=== PATIENT | female | born 1960 | race African-American/Black ===

== ENCOUNTER 2016-11-24 07:08 | Inpatient (IN) | payer OTHER ==
[~2016-11-24] VITALS: Ht 160 cm; Wt 78.5 kg
[~2016-11-24 07:08] MED LIST: HYDR-4452 PO; PANT40EC PO; [UNRECOGNIZED DRUG - CODE] PO
--- NOTE | 2016-11-24 07:20 | NUR ---
PT TAKEN TO BED 5
--- NOTE | 2016-11-24 07:23 | NUR ---
56F BIB FAMILY C/O IMPALED OBJECT TO RT FOOT BELOW 5TH DIGIT; PT STATES STEPPED ON CHAINED FENCE AT 0600 TODAY, AND OBJECT BECAME STUCK IN FOOT; PT C/O SHARP PAIN, NON-RADIATING, 10/10 AT THIS TIME; RT PEDAL PULSE PALPABLE, RT CAP REFILL < 2 SECONDS, NO LOSS OF SENSATION TO RT FOOT AT THIS TIME; NO ACTIVE BLEEDING NOTED TO SITE AT THIS TIME; PT AA&OX4, PERRLA, BL LUNG SOUNDS CLEAR, RR EVEN/UNLABORED, SKIN IS WARM/DRY AT THIS TIME; PT STATES NO N/V/D AT THIS TIME; PT RESTING IN BED WITH HOB ELEVATED AND IN LOWEST POSITION; POSITIONED FOR COMFORT; ER MD MADE AWARE OF STATUS; WILL CONTINUE TO MONITOR.
[2016-11-24 07:24] VITALS: BP 150/82
--- NOTE | 2016-11-24 07:26 | NUR ---
ER MD DR. ARROYO EVALUATING PT AT BEDSIDE.
[2016-11-24] MEDS ORDERED: BUPIVACAINE-MPF 0.5% 10 ML VIAL INJ ONE (07:39)
--- NOTE | 2016-11-24 07:56 | NUR ---
XRAY AT BEDSIDE.
--- NOTE | 2016-11-24 08:05 | NUR ---
BUPIVACAINE ADMINISTERED BY FRANTZ ARROYO AT BEDSIDE.
[2016-11-24] MEDS ORDERED: PIPERACILLIN/TAZOBACTAM 4.5 GM in DEXTROSE 5% 100 ML IV ONE (08:20)
[2016-11-24] MEDS ORDERED: VANCOMYCIN 1,000 MG in DEXTROSE 5% 250 ML IV ONE (08:20)
--- NOTE | 2016-11-24 08:20 | NUR ---
NADR FROM BUPIVACAINE ADMINISTERED BY ER MD DR. ARROYO AT THIS TIME; RR EVEN/UNLABORED; PT POSITIONED FOR COMFORT; WILL CONTINUE TO MONITOR.
[2016-11-24] MEDS ORDERED: HYDROmorphone 1 MG/ML AMP IVP ONE (08:25)
[2016-11-24] MEDS ORDERED: PIPERACILLIN/TAZOBACTAM 2.25 GM VIAL IV ONE (08:33)
[2016-11-24] MEDS ORDERED: VANCOMYCIN 1,000 MG VIAL ONE ×2 (08:34→23:13)
[2016-11-24] MEDS: DEXT 5% /NACL 0.9% 1,000 ML IV SCH ×3 (08:35→23:27)
[2016-11-24] MEDS ORDERED: LORazepam 2 MG/ML VIAL IVP PRN (08:35)
[2016-11-24] MEDS ORDERED: ACETAMINOPHEN 325 MG TAB PO PRN (08:35)
[2016-11-24] MEDS ORDERED: ONDANSETRON 4 MG/2 ML VIAL IVP PRN ×2 (08:35→10:00)
[2016-11-24 08:43] LABS: BASOPHILS # (AUTO) 0.2 K/uL (0.00-0.22); BASOPHILS % (AUTO) 1.5 % (0.0-2.0); EOSINOPHILS # (AUTO) 0.3 K/uL (0-0.4); EOSINOPHILS % (AUTO) 2.3 % (0.0-4.0); HEMOGLOBIN 12.9 g/dL (12.0-16.0); LYMPHOCYTES # (AUTO) 1.4 K/uL (2.5-16.5); LYMPHOCYTES % (AUTO) 12.7 % (20.5-51.1); MEAN CORPUSCULAR HEMOGLOBIN 28 pg (27-31); MEAN CORPUSCULAR HGB CONC 32 g/dL (33-37); MEAN CORPUSCULAR VOLUME 88 fL (80-94); MONOCYTES # (AUTO) 0.4 K/uL (0.8-1.0); MONOCYTES % (AUTO) 3.3 % (1.7-9.3); NEUTROPHILS # (AUTO) 8.8 K/uL (1.8-7.7); NEUTROPHILS % (AUTO) 80.2 % (42.2-75.2); PLATELET COUNT (AUTO) 370 K/uL (140-450); RED BLOOD CELL COUNT(AUTO) 4.53 MIL/uL (4.20-5.40); RED CELL DISTRIBUTION WIDTH 13.3 % (11.6-13.7); WHITE BLOOD COUNT (AUTO) 11.1 K/uL (4.8-10.8)
[2016-11-24] MEDS ORDERED: ceFAZolin 1,000 MG VIAL ONE (08:49)
--- NOTE | 2016-11-24 08:53 | NUR ---
REPORT GIVEN TO PRAVEENA KOLB AT THIS TIME.
[2016-11-24 08:57] LABS: PROTHROMBIN TIME 10.5 secs (10.8-13.4)
[2016-11-24] MEDS ORDERED: [UNRECOGNIZED DRUG - OTHER] PO SCH (09:00)
[2016-11-24 09:01] LABS: ALBUMIN 4.1 g/dL (3.4-5.0); ANION GAP 12.1 (8-16); CARBON DIOXIDE 28.9 mmol/L (21-32); TOTAL BILIRUBIN 0.4 mg/dL (0.0-1.0)
--- NOTE | 2016-11-24 09:10 | NUR ---
PT STATES " I FEEL BETTER. THE PAIN IS GOING DOWN"; STATES PAIN 5/10 AT THIS TIME; RR EVEN/UNLABORED; WILL CONTINUE TO MONITOR.
--- NOTE | 2016-11-24 09:12 | NUR ---
XRAY AT BEDSIDE FOR STAT XRAY BEFORE PT TAKEN TO SURGERY.
--- NOTE | 2016-11-24 09:15 | NUR ---
Patient will be admitted to care of DR. Aleksandra RAI. Admited to MED-SURG. Will go to room 106B AFTER SURGERY. Belongings list completed. Report to PRAVEENA KOLB FROM SURGERY.
--- NOTE | 2016-11-24 09:16 | NUR ---
PT TAKEN TO KATE VIA ALEC ACCOMAPANIED BY SURGERY RN AT THIS TIME.
[2016-11-24] MEDS ORDERED: ONDANSETRON 4 MG/2 ML VIAL ONE (09:18)
[2016-11-24] MEDS ORDERED: PROPOFOL 200 MG/20 ML VIAL IV ONE (09:18)
[2016-11-24] MEDS ORDERED: SEVOFLURANE 250 ML BTL INH ONE (09:18)
[2016-11-24] MEDS ORDERED: DEXAMETHASONE 4 MG/ML VIAL ONE (09:18)
[2016-11-24] MEDS ORDERED: BUPIVACAINE-MPF 0.5% 30 ML VIAL INJ ONE (09:30)
[2016-11-24] MEDS ORDERED: fentaNYL 0.05 MG/ML VIAL ONE (09:32)
[2016-11-24] MEDS ORDERED: KETOROLAC 30 MG/ML VIAL IVP PRN (10:00)
[2016-11-24 10:45] VITALS: BP 134/90
--- NOTE | 2016-11-24 10:45 | NUR ---
RECEIVED PT ON UNIT VIA RNEY, PT IS A/OX4, AMBULATORY, IV IS ON THE LEFT FOREARM, PATENT, INTACT, FLUSHING WELL, PT HAS DRESSING ON THE RIGHT FOOT, PATENT, INTACT, MINIMAL DRAINAGE, S/P FOREIGN OBJECT REMOVED ON 11/24/16, NO S/S OF RESPIRATORY DISTRESS OR DISCOMFORT NOTED, SAFETY/FALL PRECAUTIONS ARE IN PLACE, DISCUSSED PLAN OF CARE WITH PT, PT VERBALIZED UNDERSTANDING, CALL LIGHT IS WITHIN REACH, WILL CONTINUE TO MONITOR.
--- NOTE | 2016-11-24 12:30 | NUR ---
PT IS RESTING IN BED EATING LUNCH, PATIENT'S SISTER IS AT BEDSIDE.
[2016-11-24] MEDS: HYDROcodone/APAP 10/325 MG 1 TAB TAB PO PRN ×3 (12:52→23:21)
--- NOTE | 2016-11-24 14:00 | NUR ---
PATIENT IS TALKING ON HER CELL PHONE, FAMILY IS AT BEDSIDE, CALL LIGHT WITHIN REACH.
[2016-11-24 16:00] VITALS: BP 141/87
--- NOTE | 2016-11-24 16:00 | NUR ---
PATIENT IS SITTING IN BED TALKING ON HER CELL PHONE, FAMILY IS AT BEDSIDE, CALL LIGHT IS WITHIN REACH.
--- NOTE | 2016-11-24 18:09 | NUR ---
PATIENT COMPLAINING OF PAIN IN HER RIGHT FOOT WILL MEDICATE WITH PRN PAIN MEDICATION
--- NOTE | 2016-11-24 19:11 | NUR ---
ENDORSED PT TO LDR NURSE NURSE FOR CONTINUITY OF CARE, PT STABLE AT THIS TIME.
--- NOTE | 2016-11-24 19:36 | NUR ---
RECEIVED HANDOFF REPORT FROM AM RN. PATIENT A&OX4, IV PATENT AND INTACT. NO SIGNS AND SYMPTOMS OF ACUTE DISTRESS. CALL LIGHT WITHIN REACH AND SAFETY MEASURES ENSURED. PATIENT REPORTED 6/10 PAIN IN TOE. MEDICATED ORDERED. WILL CONTINUE TO MONITOR.
--- NOTE | 2016-11-24 20:00 | NUR ---
PATIENT REFUSED TYLENOL. PAGED LEONARDA REGARDING PAIN. WAITING FOR CALLBACK.
--- NOTE | 2016-11-24 21:15 | NUR ---
PER DR. CECELIA MELGOZA TO GIVE NEXT DOSE NORCO AT 2300. PT VERBALIZED UNDERSTANDING AND AGREEMENT. WILL CONTINUE TO MONITOR.
[2016-11-24] MEDS ORDERED: VANCOMYCIN PER PHARMACY MC PRN (22:25)
[2016-11-24] MEDS ORDERED: VANCOMYCIN 750 MG in DEXTROSE 5% 250 ML IV SCH (22:40)
--- NOTE | 2016-11-24 23:38 | NUR ---
PATIENT RESTING IN BED. PATIENT STATED 9/10 PAIN. MEDICATED ORDERED. NO SIGNS OR SYMPTOMS OF ACUTE DISTRESS. CALL LIGHT WITHIN REACH. WILL CONTINUE TO MONITOR.
[2016-11-25] VITALS: BP 135/73
--- NOTE | 2016-11-25 01:17 | NUR ---
PATIENT SLEEPING. ANTIBIOTICS ADMINISTERED. NO SIGNS OR SYMPTOMS OF ACUTE DISTRESS. CALL LIGHT WITHIN REACH. WILL CONTINUE TO MONITOR.
--- NOTE | 2016-11-25 02:58 | NUR ---
PATIENT SLEEPING. NO SIGNS OR SYMPTOMS OF ACUTE DISTRESS. CALL LIGHT WITHIN REACH. WILL CONTINUE TO MONITOR.
--- NOTE | 2016-11-25 05:19 | NUR ---
PATIENT AWAKE IN BED. TOTAL DRESSING CAME OFF DURING SLEEP. REINFORCED WITH NEW DRESSING. PATIENT DENIES PAIN. NO SIGNS AND SYMPTOMS OF ACUTE DISTRESS. CALL LIGHT WITHIN REACH. WILL CONTINUE TO MONITOR.
[2016-11-25 05:59] LABS: ANION GAP 13.1 (8-16); CARBON DIOXIDE 25.9 mmol/L (21-32); CREATININE 0.8 mg/dL (0.6-1.3)
[2016-11-25] MEDS: PANTOPRAZOLE 40 MG TABEC PO SCH (06:00)
[2016-11-25] MEDS: HYDROcodone/APAP 10/325 MG 1 TAB TAB PO PRN ×3 (06:07→20:08)
[2016-11-25 06:15] LABS: HEMOGLOBIN 11.4 g/dL (12.0-16.0); MEAN CORPUSCULAR HEMOGLOBIN 29 pg (27-31); MEAN CORPUSCULAR HGB CONC 33 g/dL (33-37); MEAN CORPUSCULAR VOLUME 88 fL (80-94); PLATELET COUNT (AUTO) 343 K/uL (140-450); RED BLOOD CELL COUNT(AUTO) 3.97 MIL/uL (4.20-5.40); RED CELL DISTRIBUTION WIDTH 12.8 % (11.6-13.7)
--- NOTE | 2016-11-25 07:16 | NUR ---
GAVE HANDOFF REPORT TO AM RN. PATIENT REMAINS STABLE
--- NOTE | 2016-11-25 07:20 | NUR ---
RECEIVED REPORT FROM PLEATER NURSE, PT IS A/OX4, AMBULATORY, IV IS ON THE LEFT FOREARM, PATENT, INTACT, FLUSHING WELL, PT HAS DRESSING ON THE RIGHT FOOT, PATENT, INTACT, MINIMAL DRAINAGE, S/P FOREIGN OBJECT REMOVED ON 11/24/16, NO S/S OF RESPIRATORY DISTRESS OR DISCOMFORT NOTED, SAFETY/FALL PRECAUTIONS ARE IN PLACE, DISCUSSED PLAN OF CARE WITH PT, PT VERBALIZED UNDERSTANDING, CALL LIGHT IS WITHIN REACH, WILL CONTINUE TO MONITOR.
[2016-11-25 07:27] LABS: LYMPHOCYTES % (MANUAL) 12 % (20-46); MONOCYTES % (MANUAL) 5 % (5-12)
[2016-11-25 08:00] VITALS: BP 134/83
--- NOTE | 2016-11-25 09:25 | NUR ---
PT IS RESTING IN BED WATCHING TV, PATIENT'S SISTER IS AT BEDSIDE.
--- NOTE | 2016-11-25 09:27 | NUR ---
PATIENT HAS BEEN SCREENED AND CATEGORIZED HIGH NUTRITION RISK. PATIENT WILL BE SEEN WITHIN 1-2 DAYS OF ADMISSION. 11/24/16-11/25/[address]
--- NOTE | 2016-11-25 11:30 | NUR ---
CALLED PHARMACY AND SPOKE TO LAKE, I LET HER KNOW I WAS CALLING REGARDING THE VANCOMYCIN THAT IS DUE AT 1100 AM TODAY, LAKE SAID SHE WOULD SEND THE MEDICATION OVER.
[2016-11-25] MEDS: VANCOMYCIN 750 MG in DEXTROSE 5% 250 ML IV SCH ×2 (11:46→23:22)
--- NOTE | 2016-11-25 11:47 | NUR ---
DUE IVPB ANTIBIOTIC HUNG, NO S/S OF RESPIRATORY DISTRESS OR DISCOMFORT NOTED, ALL NEEDS MET, CALL LIGHT IS WITHIN REACH.
--- NOTE | 2016-11-25 13:45 | NUR ---
PT IS RESTING IN BED WATCHING TV, PATIENT'S SISTER IS AT BEDSIDE.
[2016-11-25] MEDS: DEXT 5% /NACL 0.9% 1,000 ML IV SCH (14:40)
--- NOTE | 2016-11-25 14:41 | NUR ---
PER SHERRIE, SAS SQL DEVELOPER. NO CM ASSIGNED. WAS INSTRUCTED TO FAX REVIEW TO [phone], WHICH I DID. PHON [phone] OP3
--- NOTE | 2016-11-25 14:44 | NUR ---
11/25/16 RD INITIAL ASSESSMENT COMPLETED PLEASE REFER TO NUTRITION ASSESSMENT UNDER CARE ACTIVITY FOR ESTIMATED NUTRITIONAL NEEDS 1. CONTINUE REGULAR DIET 2. ADD VITAMIN C (250 MG/DAILY) FOR WOUND HEALING 3. RD TO FOLLOW-UP 3-5 DAYS, MODERATE RISK [facility]FREY VANCE, DEX
--- NOTE | 2016-11-25 15:50 | NUR ---
PT IS RESTING IN BED WATCHING TV, CALL LIGHT IS WITHIN REACH.
[2016-11-25 16:00] VITALS: BP 143/73
--- NOTE | 2016-11-25 17:48 | NUR ---
PATIENT IS SITTING UP IN BED EATING DINNER, PATIENT'S SISTER IS AT BEDSIDE, CALL LIGHT IS WITHIN REACH.
--- NOTE | 2016-11-25 19:10 | NUR ---
ENDORSED PT TO PHYSICIAN COMPENSATION ANALYST NURSE FOR CONTINUITY OF CARE, PT STABLE AT THIS TIME.
--- NOTE | 2016-11-25 19:34 | NUR ---
RECEIVED HANDOFF REPORT FROM AM RN. PATIENT A&OX4. IV SITE PATENT AND INTACT. DRESSING ON LEFT FOOT DRY AND INTACT. PATIENT STATES PAIN 9/10. WILL MEDICATE ORDERED. NO SIGNS AND SYMPTOMS OF ACUTE DISTRESS. SAFETY MEASURES ENSURED. CALL LIGHT WITHIN REACH. WILL CONTINUE TO MONITOR.
[2016-11-25] MEDS ORDERED: BUPR150F BC (20:10)
--- NOTE | 2016-11-25 22:39 | NUR ---
ENDORSED PLAN OF CARE TO NIGHT PRAVEENA GRANT. PT RESTING IN BED.
--- NOTE | 2016-11-25 22:41 | NUR ---
RECEIVED REPORT FROM NIGHT PRAVEENA CAMPOS. PATIENT RESTING IN BED, STABLE CONDITION, WILL CONTINUE TO MONITOR.
[2016-11-26] VITALS: BP 153/77
--- NOTE | 2016-11-26 | NUR ---
VITAL SIGNS STABLE NO SIGN OF DISTRESS, CALL LIGHT WITHIN REACH. WILL CONTINUE TO MONITOR.
[2016-11-26] MEDS: DEXT 5% /NACL 0.9% 1,000 ML IV SCH ×3 (00:38→22:10)
--- NOTE | 2016-11-26 02:05 | NUR ---
PATIENT SLEEPING, NO SIGN OF DISTRESS WILL CONTINUE TO MONITOR
[2016-11-26] MEDS: HYDROcodone/APAP 10/325 MG 1 TAB TAB PO PRN ×3 (02:43→20:02)
--- NOTE | 2016-11-26 04:00 | NUR ---
PT SLEEPING, NO SIGN OF DISTRESS ,WILL CONTINUE TO MONITOR
[2016-11-26] MEDS: PANTOPRAZOLE 40 MG TABEC PO SCH (05:56)
[2016-11-26 06:42] LABS: BASOPHILS # (AUTO) 0.1 K/uL (0.00-0.22); BASOPHILS % (AUTO) 1.1 % (0.0-2.0); EOSINOPHILS # (AUTO) 0.2 K/uL (0-0.4); EOSINOPHILS % (AUTO) 1.7 % (0.0-4.0); HEMATOCRIT 32.5 % (36-48); HEMOGLOBIN 10.5 g/dL (12.0-16.0); LYMPHOCYTES # (AUTO) 3.3 K/uL (2.5-16.5); LYMPHOCYTES % (AUTO) 32.1 % (20.5-51.1); MEAN CORPUSCULAR HEMOGLOBIN 29 pg (27-31); MEAN CORPUSCULAR HGB CONC 32 g/dL (33-37); MEAN CORPUSCULAR VOLUME 89 fL (80-94); MONOCYTES # (AUTO) 0.9 K/uL (0.8-1.0); MONOCYTES % (AUTO) 8.7 % (1.7-9.3); NEUTROPHILS # (AUTO) 5.7 K/uL (1.8-7.7); NEUTROPHILS % (AUTO) 56.4 % (42.2-75.2); PLATELET COUNT (AUTO) 318 K/uL (140-450); RED BLOOD CELL COUNT(AUTO) 3.67 MIL/uL (4.20-5.40); RED CELL DISTRIBUTION WIDTH 13.2 % (11.6-13.7); WHITE BLOOD COUNT (AUTO) 10.2 K/uL (4.8-10.8)
[2016-11-26 07:08] LABS: ANION GAP 8.2 (8-16); CARBON DIOXIDE 27.9 mmol/L (21-32); CREATININE 0.7 mg/dL (0.6-1.3); POTASSIUM 4.1 mmol/L (3.5-5.1)
--- NOTE | 2016-11-26 07:31 | NUR ---
ENDORSED PATIENT TO DAY RN AT BEDSIDE, PATIENT IN STABLE CONDITION
--- NOTE | 2016-11-26 07:35 | NUR ---
RECEIVED PATIENT REPORT AT BEDSIDE FROM NIGHT NURSE. PATIENT IS AAOX4 AND SHOWS NO S/S OF ACUTE DISTRESS ON ROOM AIR. PATIENT HAS NOTED DRESSING ON THE R FOOT CLEAN DRY AND INTACT. PATIENT DENIES PAIN AT THIS TIME. IV NOTED ON THE L H WITH IVF'S INFUSING WELL. PATIENT WAS EXPLAINED POC FOR TODAY AND VERBALIZED UNDERSTANDING. PATIENT IS AWARE OF HOW TO USE THE CALL LIGHT FOR ASSISTANCE. THE BED IS LOWERED WITH CALL LIGHT WITHIN REACH.
[2016-11-26 08:00] VITALS: BP 161/86
[2016-11-26] MEDS: ASCORBIC ACID 500 MG TAB PO SCH (09:12)
--- NOTE | 2016-11-26 09:12 | NUR ---
ADMINISTERED SCHEDULED MEDICATIONS. PATIENT TOLERATED ACTIVITY WELL. PATIENT HAS FAMILY AT BEDSIDE. PATIENT SHOWS NO S/S OF ACUTE DISTRESS ON ROOM AIR. THE BED IS LOWERED WITH CALL LIGHT WITHIN REACH. ALL OF PATIENT'S NEEDS ARE MET AT THIS TIME. WILL CONTINUE TO MONITOR.
[2016-11-26] MEDS: VANCOMYCIN 750 MG in DEXTROSE 5% 250 ML IV SCH (11:07)
[2016-11-26] MEDS ORDERED: VANCOMYCIN 750 MG in DEXTROSE 5% 250 ML IV SCH (11:14)
--- NOTE | 2016-11-26 11:15 | NUR ---
ADMINISTERED SCHEDULED MEDICATIONS. IV ABX IS INFUSING WELL. PATIENT DENIES PAIN. DR RAI IS NOW SEEING PATIENT. WILL CONTINUE TO MONITOR.
[2016-11-26] MEDS ORDERED: diphenhydrAMINE 50 MG/ML VIAL IVP PRN (12:40)
--- NOTE | 2016-11-26 12:40 | NUR ---
PATIENT C/O ITCHINESS AT IV SITE AFTER ADMINISTERING ABX. PATIENT DENIES SOB AND DYSPNEA. NOTED REDNESS ON UPPER L ARM. SPOKE WITH DR RAI FOR ORDERS. ORDERED BENADRYL 15 MG IVP Q6H FOR ITCHINESS.
--- NOTE | 2016-11-26 12:58 | NUR ---
ADMINISTERED PRN BENADRYL 15 MG IVP FOR ITCHINESS. PATIENT DENIES SOB AND DYSPNEA. PATIENT SHOW NO S/S OF ACUTE DISTRESS.
--- NOTE | 2016-11-26 13:20 | NUR ---
PATIENT STATES " I AM FEELING BETTER ". PATIENT DENIES PAIN AND SOB. FAMILY AT BEDSIDE. WILL CONTINUE TO MONITOR.
[2016-11-26 16:00] VITALS: BP 156/85
--- NOTE | 2016-11-26 16:00 | NUR ---
PATIENT STATED PAIN OF 4/10 AT R FOOT. PATIENT REFUSED PAIN MEDICATION AT THIS TIME. WILL CONTINUE TO MONITOR. PATIENT SHOWS NO S/S OF ACUTE DISTRESS ON ROOM AIR.
--- NOTE | 2016-11-26 17:37 | NUR ---
PATIENT IS AAOX4 AND DENIES PAIN. PATIENT SHOWS NO S/S OF ACUTE DISTRESS ON ROOM AIR. PATIENT IVF'S ARE INFUSING WELL ON THE L H. PATIENT'S BED IS LOWERED WITH CALL LIGHT WITHIN REACH.
--- NOTE | 2016-11-26 19:30 | NUR ---
GAVE PATIENT REPORT AT BEDSIDE TO NIGHT NURSE. PATIENT ENDORSED IN STABLE CONDITION.
--- NOTE | 2016-11-26 19:30 | NUR ---
PATIENT IS CURRENTLY SITTING IN BED AWAKE ALERT ORIENTED IVF INFUSING WELL IV SITE PATENT. FAMILY AT THIS TIME WITH THE PATIENT AT BEDSIDE. I NOTICED WHILE RECEIVING REPORT AT BEDSIDE THAT PATIENT HAS A LONG WHITE EXTENSION CORD AND HAS TWO THINGS CONNECTED TO THE EXTENSION CORD I KINDLY EXPLAINED TO THE PATIENT THAT SHE CANNOT USE THAT EXTENSION CORD UNLESS ITS A 3 PRONGED EXTENSION CORD AND HAS BEEN CHECKED BY ENGINEERING DEPARTMENT THEN I EXPLAINED TO HER I WILL DOUBLE CHECK WITH THE CHARGE NURSE.PATIENT IS COMPLIANT AND SAID SHE WILL REMOVE IT AND HAVE HER FAMILY TAKE IT HOME. I CHECKED WITH PRAVEENA MOHAMUD AND SHE SAID THAT EXTENSION CORD IS NOT ALLOWED. PATIENT AND FAMILY AWARE.PATIENT HAS CALL LIGHT WITHIN REACH.WILL CONTINUE TO MONITOR.
--- NOTE | 2016-11-26 19:45 | NUR ---
MD BACA CAME IN AND WILL FOLLOW UP ON ANY ORDERS.
--- NOTE | 2016-11-26 19:50 | NUR ---
I'M CHECKING HER VITAL SIGNS NO SIGNS OF FEVER NOTED AT THIS TIME. PATIENT STATES," MD RAI SAID HE WOULD CHANGE MY ANTIBIOTICS SO I CAN TAKE THEM BY MOUTH I HAD A REALLY BAD RASH TO MY LT ARM AND IT WAS PAINFUL I DON'T WANT TO GO THRU THAT AGAIN."PATIENT STATES," DOCTOR CECELIA TOLD ME THAT NURSE WHITNEY RAN MY VANCOMYCIN FAST THAT WAS THE REASON WHY I GOT THE RASH ON MY ARM AND THEN IT TOOK THE NURSE I CHECKED HER RT FOOT LACERATION I REMOVED THE BANDAID AND THERE IS CURRENTLY NO DRAINAGE NOTED ONLY SLIGHTLY SWELLING I WALKED OUTSIDE TO SEE IF MD BACA IS HERE BUT I WAS TOLD BY MANUFACTURING PROCESS ENGINEER NURSE THAT HE LEFT ALREADY BUT HE PUT NEW ORDERS IN.
[2016-11-26 20:00] VITALS: BP 146/96
--- NOTE | 2016-11-26 20:02 | NUR ---
PATIENT COMPLAINS OF SEVERE PAIN 11/03 TO RT FOOT PATIENT WAS MEDICATED WITH NORCO 1 TABLET PO ORDERED.
[2016-11-26] MEDS: CLINDAMYCIN 150 MG CAP PO SCH (20:05)
--- NOTE | 2016-11-26 20:05 | NUR ---
PATIENT WAS INFORMED THAT MD BACA CAME IN AND GAVE NEW ORDERS FOR PO ANTIBIOTICS CLEOCIN AND BACTRIM AND THE IV VANCOMYCIN WAS DISCONTINUED. PATIENT WAS EDUCATED ON THE IMPORTANCE OF TAKING HER ANTIBIOTICS AND THE PURPOSE OF THE ANTIBIOTICS. PATIENT IS AWARE AND VERBALIZES UNDERSTANDING. SHE TOOK THE CLEOCIN PO ANTIBIOTIC WILL MONITOR FOR ANY ADR.
[2016-11-26] MEDS: SULFAMETH/TRIMETH DS 800/160MG 1 TAB PO SCH (20:07)
--- NOTE | 2016-11-26 20:07 | NUR ---
PATIENT TOOK HER BACTRIM ANTIBIOTIC PO ORDERED.VERBALIZED UNDERSTANDING AND PURPOSE OF TAKING THE ANTIBIOTIC.
--- NOTE | 2016-11-26 20:10 | NUR ---
PATIENT'S SISTER SITTING IN THE OTHER BED AND ASKING FOR A BLANKET SO SHE CAN COVER HER SELF FOR TONIGHT.I EXPLAINED KINDLY AND THE NICEST AND PROFESSIONAL WAY POSSIBLE TO THE PATIENT THAT VISITING HOURS ARE OVER AND I ALSO EXPLAINED THAT HER SISTER CAN'T STAY IN THE OTHER BED OR SLEEP IN THE OTHER BED.PATIENT BECAME UPSET AND PATIENT STATES," MY SISTER IS MENTALLY CHALLENGED AND I TAKE CARE OF HER I CANNOT LEAVE HER ALONE I LOOK AFTER HER, IF YOU CANNOT ACCOMMODATE HER I WANT TO GO HOME TONIGHT I WANT TO LEAVE."PATIENT STATES,"I HAVE PPO INSURANCE AND I WAS PROMISED BY THE LACING OPERATOR NURSE THAT I WOULD HAVE A PRIVATE ROOM FOR MYSELF." PATIENT STATES,"I WANT TO LEAVE THIS IS RIDICULOUS MY SISTER STAYED WITH ME ALREADY FOR TWO DAYS." I APOLOGIZED AND TO THE PATIENT AND EXPLAINED THAT I DIDN'T KNOW THE SITUATION AND I TOLD THE PATIENT I WILL TRY TO ACCOMMODATE YOU BUT I WILL HAVE TO INFORM THE CHARGE NURSE.PATIENT STATES,"NO, I HAVE RIGHTS AND I DON'T WANT TO TALK TO THE CHARGE NURSE I WANT YOU TO TELL THE DOCTOR TO COME IN TONIGHT AND DISCHARGE ME BECAUSE I AM NOT SIGNING MY SELF OUT." I EXPLAINED TO HER THAT I HAVE TO FOLLOW THE CHAIN OF COMMAND AND I HAVE TO INFORM PRAVEENA LEON AND THEN I WILL CALL THE MD AND LET HIM KNOW SHE WANTS TO BE DISCHARGED. PATIENT STATES," REMOVE MY IV I DON'T WANT IT." I REMOVED IT AND I WENT TO CALL Kirk KINCAID TO INFORM HIM PATIENT WANTS AND DEMANDS TO BE DISCHARGED.
--- NOTE | 2016-11-26 20:11 | NUR ---
I TOOK IT UPON MYSELF TO CHECK NURSES NOTED TO SEE IF ANYWHERE IT WAS DOCUMENTED THAT PATIENT'S SISTER WAS GIVEN PERMISSION OR DOCUMENTED IF THE CHARGE NURSE WAS AWARE OR EVEN IF THE NURSING SOAP DRIER OPERATOR WAS INFORMED AND GIVEN PERMISSION FOR HER SISTER TO STAY AND SLEEP IN THE OTHER EMPTY BED.I COULDN'T FIND ANY DOCUMENTATION TO SUPPORT HER CLAIM. I ALSO ASKED PRECISION AGRICULTURE SPECIALISTMARYLOU LEON IF SHE KNEW SHE SAID SHE DIDN'T KNOW EITHER AND WASN'T TOLD ANYTHING BY THE MORNING CHARGE NURSE. IN DESPITE NOT FINDING THIS INFORMATION I STILL OFFERED TO ACCOMODATE THE PATIENT BUT SHE CONSTANTLY REFUSED.
--- NOTE | 2016-11-26 20:12 | NUR ---
I CALLED MD RAI [facility] AND SPOKE TO NAT FROM EXCHANGE AND SAID SHE WILL PAGE .WILL WAIT FOR HIS CALL BACK.
--- NOTE | 2016-11-26 20:13 | NUR ---
I INFORMED ACLS SPECIALIST NURSE EDWARD OF SITUATION AND SHE WENT AND SPOKE TO THE PATIENT AND ACLS SPECIALIST NURSE INFORMED ME THAT SHE LET PATIENTS SISTER WHO IS MENTALLY CHALLENGE STAY FOR THE NIGHT AND PATIENT AGREED FOR HER SISTER TO STAY BESIDE HER SITTING DOWN IN A CHAIR RIGHT NEXT TO HER.
--- NOTE | 2016-11-26 20:15 | NUR ---
PATIENT WALKED TO THE NURSES STATION AND TOLD PRAVEENA LEON THAT SHE DOESN'T WANT ME TO BE HER NURSE. I ASKED THE PATIENT JUST TO CLARIFY WITH HER I ASKED HER SO YOU DON'T WANT ME TO BE YOUR NURSE SHE SAID,"NO." ANIMAL BOUNTY HUNTER NURSE AWARE.ANIMAL BOUNTY HUNTER SAID THAT IF MD RAI CALLS BACK AND SAYS FOR PATIENT TO STAY SHE WILL LET PRAVEENA WINTER TAKE CARE OF HER BUT IN THE MEANTIME I WILL CONTINUE TO BE HER NURSE BUT PRAVEENA HICKMAN WILL ATTEND TO ALL OF PATIENTS NEEDS BECAUSE PATIENT DOESN'T WANT ME IN THE ROOM OR AROUND HER PROVIDING CARE FOR HER. STILL WAITING FOR MANDY KINCAID TO CALL BACK.
--- NOTE | 2016-11-26 20:20 | NUR ---
MD FILM SOUND ENGINEER PHIL WAS INFORMED OF THE SITUATION WITH THE PATIENT AND IS AWARE THAT CHARGE NURSE IS TAKING CARE OF THE SITUATION.
--- NOTE | 2016-11-26 20:52 | NUR ---
MD RAI CALLED BACK AND INFORMED HER OF PATIENTS CURRENT CONDITION HE WAS INFORMED THAT MD BACA CAME TONIGHT AND CHANGED HER ANTIBIOTIC AND GAVE NEW ORDERS FOR ANTIBIOTIC PO.I ALSO INFORMED MD THAT PATIENT DEMANDS AND WANTS TO BE DISCHARGED. Kirk KINCAID STATES,"NO I WILL NOT DISCHARGE THE PATIENT TONANU BLANCAS EXPLAINED HE WANTS TO CHECK LABS IN THE MORNING AND SAID SHE IS NOT READY TO BE DISCHARGED SO IF SHE WANTS TO GO IT WILL BE AGAINST MEDICAL ADVICE.GAVE NO NEW ORDERS. I INFORMED CHANNEL REBUILDER NURSE EDWARD AND SHE EXPLAINED IT TO THE PATIENT. PER CHANNEL REBUILDER EDWARD SHE SAID PATIENT WILL CALL MD AND TALK TO MD HERSELF.
--- NOTE | 2016-11-26 21:30 | NUR ---
PATIENT WAS GIVEN TIME TO CALL MD HERSELF AND ALSO TO CALM DOWN THEN FIRE ENGINE OPERATOR NURSE WENT AND ASKED HER IF SHE IS STAYING PATIENT AGREED TO STAY.WILL ENDORSE PATIENT TO PRAVEENA WINTER WHEN SHE IS DONE WITH HER ADMISSION.
--- NOTE | 2016-11-26 21:45 | NUR ---
PRAVEENA LEON ATTENDING TO PATIENT NEEDS AND MAKING SURE SHE IS COMFORTABLE SINCE PATIENT DOESN'T WANT ME NEAR HER ROOM OR PROVIDING CARE FOR HER.
--- NOTE | 2016-11-26 22:14 | NUR ---
REPORT ENDORSED TO PRAVEENA WINTER BY SAHARA MELÉNDEZ AND PRAVEENA LEON.SHE WILL RESUME CARE OF THE PATIENT.
--- NOTE | 2016-11-26 22:14 | NUR ---
RECEIVED REPORT FROM RENATO MODI IN STABLE CONDITION. WILL CONTINUE PLAN OF CARE.
[2016-11-26 23:43] VITALS: BP 143/83
[2016-11-27] MEDS: HYDROcodone/APAP 10/325 MG 1 TAB TAB PO PRN ×2 (02:05→08:26)
--- NOTE | 2016-11-27 02:05 | NUR ---
C/O PAIN ON THE RT FOOT. MEDICATED ORDERED. WILL CONTINUE TO MONITOR.
--- NOTE | 2016-11-27 03:05 | NUR ---
PT IS AWAKE. NO MORE C/O PAIN AT THIS TIME. WILL CONTINUE TO MONITOR.
[2016-11-27] MEDS: CLINDAMYCIN 150 MG CAP PO SCH (05:22)
--- NOTE | 2016-11-27 05:22 | NUR ---
ANOTHER DOSE OF CLEOCIN PO GIVEN ORDERED.
[2016-11-27] MEDS: DEXT 5% /NACL 0.9% 1,000 ML IV SCH (06:35)
[2016-11-27 06:42] LABS: BASOPHILS # (AUTO) 0.2 K/uL (0.00-0.22); BASOPHILS % (AUTO) 2.3 % (0.0-2.0); EOSINOPHILS # (AUTO) 0.2 K/uL (0-0.4); HEMATOCRIT 34.8 % (36-48); HEMOGLOBIN 11.4 g/dL (12.0-16.0); LYMPHOCYTES # (AUTO) 2.9 K/uL (2.5-16.5); LYMPHOCYTES % (AUTO) 29.7 % (20.5-51.1); MEAN CORPUSCULAR HEMOGLOBIN 29 pg (27-31); MEAN CORPUSCULAR HGB CONC 33 g/dL (33-37); MEAN CORPUSCULAR VOLUME 88 fL (80-94); MONOCYTES # (AUTO) 0.9 K/uL (0.8-1.0); MONOCYTES % (AUTO) 9.1 % (1.7-9.3); NEUTROPHILS # (AUTO) 5.5 K/uL (1.8-7.7); NEUTROPHILS % (AUTO) 56.9 % (42.2-75.2); PLATELET COUNT (AUTO) 324 K/uL (140-450); RED BLOOD CELL COUNT(AUTO) 3.96 MIL/uL (4.20-5.40); RED CELL DISTRIBUTION WIDTH 13.1 % (11.6-13.7); WHITE BLOOD COUNT (AUTO) 9.7 K/uL (4.8-10.8)
[2016-11-27] MEDS: PANTOPRAZOLE 40 MG TABEC PO SCH (07:02)
[2016-11-27 07:16] LABS: ANION GAP 11.2 (8-16); CARBON DIOXIDE 27.6 mmol/L (21-32); POTASSIUM 3.8 mmol/L (3.5-5.1)
--- NOTE | 2016-11-27 07:25 | NUR ---
ENDORSED PT IN STABLE CONDITION TO AM NURSE.
--- NOTE | 2016-11-27 07:30 | NUR ---
RECEIVED PATIENT REPORT AT BEDSIDE FROM NIGHT NURSE. PATIENT IS AAOX4 AND SHOWS NO S/S OF ACUTE DISTRESS ON ROOM AIR. PATIENT HAS NOTED DRESSING ON THE R FOOT CLEAN DRY AND INTACT. PATIENT STATES 7/10 RIGHT FOOT PAIN AT THIS TIME.WILL MEDICATE. IV NOTED ON THE L H SL. PATIENT WAS EXPLAINED POC FOR TODAY AND VERBALIZED UNDERSTANDING. PATIENT IS AWARE OF HOW TO USE THE CALL LIGHT FOR ASSISTANCE. THE BED IS LOWERED WITH CALL LIGHT WITHIN REACH.
[2016-11-27 08:00] VITALS: BP 157/90
--- NOTE | 2016-11-27 08:10 | NUR ---
SPOKE WITH DR Aleksandra RAI REGARDING DISCHARGE ORDER FOR PATIENT. PATIENT IS INSISTING TO GO HOME. DR RAI IS AWARE OF WBC AT 9.[address] BACA ORDERS TO CONTINUE PO ABX FOR ONE WEEK. DR RAI OKAYED PATIENT FOR DISCHARGE.
[2016-11-27] MEDS: SULFAMETH/TRIMETH DS 800/160MG 1 TAB PO SCH (08:22)
[2016-11-27] MEDS: ASCORBIC ACID 500 MG TAB PO SCH (08:22)
--- NOTE | 2016-11-27 08:26 | NUR ---
ADMINISTERED SCHEDULED MEDICATIONS. PATIENT WAS GIVEN NORCO 10/325 MG PO FOR 10/03 RT FT PAIN. PATIENT AWARE OF DISCHARGE ORDER. PATIENT SHOWS NO S/S OF ACUTE DISTRESS ON ROOM AIR. WILL CONTINUE TO MONITOR.
[2016-11-27] MEDS ORDERED: CLIN300C2 PO (08:45)
[2016-11-27] MEDS ORDERED: SULF-58 PO ×2 (08:47→08:48)
--- NOTE | 2016-11-27 09:40 | NUR ---
PATIENT HAS BEEN DISCHARGED. ALL DISCHARGE INSTRUCTIONS GIVEN AND PATIENT IS AWARE TO CALL DR RAI OFFICE AT [phone] FROM PHARMACY TO RECEIVED MEDICATION PRESCRIPTION ORDERS. PATIENT'S QUESTIONS WERE ANSWERED. PATIENT VERBALIZED UNDERSTANDING. ALL BELONGINGS ARE IN PATIENTS POSSESSION. IV WAS DISCONTINUED WITH CANULA INTACT. WRISTBANDS REMOVED. PATIENT LEFT UNIT IN WHEELCHAIR WITH FAMILY PRESENT AT SIDE. PATIENT LEFT IN STABLE CONDITION.
--- NOTE | 2016-11-30 08:49 | NUR ---
PER REQUEST OF ELZBIETA SOTO FROM [facility], RETRO CLINCIAL REVIEW FAXED TO HER AT [phone] PHONE [phone] REF #[id number].
== END 2016-11-27 09:40 | disposition home or self-care (01) | DRG 872 ==
LOC: MED 07:08 → MTU 08:40
PROVIDERS: ADMIT Preventive Medicine Preventive Medicine/Occupational Environmental Medicine; ATTEND Preventive Medicine Preventive Medicine/Occupational Environmental Medicine
PROC: 0JCQ0ZZ Extirpation of Matter from Right Foot Subcutaneous Tissue and Fascia, Open Approach (ICD-10-PCS; principal; 2016-11-24 09:00)
DX: A41.9 Sepsis, unspecified organism (principal); S91.341A Puncture wound with foreign body, right foot, initial encounter; L03.115 Cellulitis of right lower limb; G89.29 Other chronic pain; X58.XXXA Exposure to other specified factors, initial encounter; K21.9 Gastro-esophageal reflux disease without esophagitis; R73.9 Hyperglycemia, unspecified; D64.9 Anemia, unspecified; N18.9 Chronic kidney disease, unspecified; R03.0 Elevated blood-pressure reading, without diagnosis of hypertension; Y99.8 Other external cause status; Y93.89 Activity, other specified; Y92.89 Other specified places as the place of occurrence of the external cause; Z79.899 Other long term (current) drug therapy
CPT/HCPCS: 36415; 71010; 73630; 80048; 80053; 85025; 85610; 85651; 85730; 86140; 87081; 90471; 90715; 93005; 96365; 96375; 99285; J0690; J0696; J1100; J1170; J1200; J1885; J2405; J2543; J2704; J3010; J3370; J3490; J7042; J7060; J7120; Q0092

== ENCOUNTER 2022-02-12 19:10 | Emergency (ER) | payer SELFPAY ==
[~2022-02-12 19:10] MED LIST changes: +BUPR150F3 BC; +CLIN300C2 PO; -HYDR-4452 PO; +HYDR-5191 PO; +SULF-58 PO
--- NOTE | 2022-02-12 19:20 | NUR ---
PT CAME TO REGISTERATION WINDOW AND SAID SHE WAS LWBS
== END 2022-02-12 19:20 | disposition left against medical advice (07) ==
LOC: MED 19:10
DX: R04.0 Epistaxis (principal); Z53.21 Procedure and treatment not carried out due to patient leaving prior to being seen by health care provider